=== PATIENT | male | born 1970 | race Caucasian/White ===

== ENCOUNTER 2020-02-01 07:56 | Day surgery (SDC) | payer BC ==
[~2020-02-01] VITALS: Ht 182.9 cm; Wt 72.7 kg
[~2020-02-01 07:56] MED LIST: B-12250 MCG; CALC1.25T; CHOL10002; CLARITIN10 MG PO; Canasa1000 MG; FLUT.05NI; MAGCHL64ER
== END 2020-02-01 09:52 | disposition home or self-care (01) ==
LOC: ORSCSDS 07:56
PROVIDERS: Internal Medicine Gastroenterology
PROC: 0DBP8ZX Excision of Rectum, Via Natural or Artificial Opening Endoscopic, Diagnostic (ICD-10-PCS; principal; 2020-02-01 09:00)
PROC: 0DBE8ZX Excision of Large Intestine, Via Natural or Artificial Opening Endoscopic, Diagnostic (ICD-10-PCS; principal; 2020-02-01 09:00)
DX: K51.20 Ulcerative (chronic) proctitis without complications (principal)
CPT/HCPCS: 88305; J0461; J2405; J2704; J7120